=== PATIENT | male | born 1995 | race Hispanic/Latino ===

== ENCOUNTER 2018-09-09 02:50 | Emergency (ER) | payer OTHER ==
[2018-09-09] MEDS ORDERED: IBUPROFEN 600 MG TABLET ONE (03:17)
[2018-09-09] MEDS ORDERED: ACETAMINOPHEN EXTRA STRENGTH 500 MG TABLET ONE (03:18)
== END 2018-09-09 04:06 ==
LOC: EDH 02:50
DX: B34.9 Viral infection, unspecified (principal); H92.09 Otalgia, unspecified ear
CPT/HCPCS: 87804

== ENCOUNTER 2018-09-09 21:10 | Emergency (ER) | payer OTHER ==
[2018-09-09] MEDS ORDERED: IBUPROFEN 600 MG TABLET ONE (21:26)
[2018-09-09] MEDS ORDERED: ACETAMINOPHEN EXTRA STRENGTH 500 MG TABLET ONE (22:27)
== END 2018-09-09 22:49 | disposition home or self-care (01) ==
LOC: EDH 21:10
DX: J10.1 Influenza due to other identified influenza virus with other respiratory manifestations (principal)
CPT/HCPCS: 87804; 87880